=== PATIENT | male | born 2000 | race Caucasian/White ===

== ENCOUNTER 2024-07-04 17:38 | Emergency (ER) | payer SELFPAY ==
[~2024-07-04] VITALS: Ht 175.3 cm; Wt 68.0 kg
[2024-07-04 17:45] VITALS: BP 136/88; PULSE 89; RESP 18; TEMP 37.3; O2SAT 99
== END 2024-07-04 20:04 | disposition left against medical advice (07) ==
LOC: ER 17:38
DX: F41.0 Panic disorder [episodic paroxysmal anxiety] (principal); Z53.21 Procedure and treatment not carried out due to patient leaving prior to being seen by health care provider